=== PATIENT | male | born 1955 | race Asian ===

== ENCOUNTER 2022-11-12 22:02 | Emergency (ER) | payer OTHER ==
[~2022-11-12] VITALS: Ht 167.6 cm; Wt 66.0 kg
[2022-11-12 22:08] VITALS: TEMP 98.4
[2022-11-13] MEDS ORDERED: BUPIVACAINE HCL/PF 0.25% 10 ML VIAL SQ ONE (01:15)
[2022-11-13] MEDS ORDERED: LIDOCAINE 1% 10 ML VIAL SQ ONE (01:15)
[2022-11-13] MEDS ORDERED: HYDROCODONE/ACETAMINOPHEN 5-325 MG TABLET PO ONE (01:15)
[2022-11-13] MEDS ORDERED: GELATIN SPONGE,ABSORBABLE 12-7 MM TP ONE (02:00)
[2022-11-13] MEDS ORDERED: TRAM-559 PO (02:26)
[2022-11-13 02:32] VITALS: BP 138/70; PULSE 78; RESP 18
== END 2022-11-13 02:33 | disposition home or self-care (01) ==
LOC: EMS 22:04
DX: S61.112A Laceration without foreign body of left thumb with damage to nail, initial encounter (principal); E78.00 Pure hypercholesterolemia, unspecified; I10 Essential (primary) hypertension; W26.0XXA Contact with knife, initial encounter; Y93.89 Activity, other specified; Y92.89 Other specified places as the place of occurrence of the external cause; Y99.8 Other external cause status
CPT/HCPCS: 99283; J3490 ×2